=== PATIENT | male | born 1945 | race Caucasian/White ===

== ENCOUNTER → 2019-08-20 | Outpatient (CLI) | payer MEDICARE | END | disposition home or self-care (01) | LOC: RAD 09:58 | DX: I51.7 Cardiomegaly (principal); R05 Cough ==

== ENCOUNTER 2020-02-08 06:56 | Emergency (ER) | payer MEDICARE ==
[~2020-02-08] VITALS: Ht 180.3 cm; Wt 90.7 kg
--- NOTE | 2020-02-08 06:49 | NUR ---
PT WAS ELECTIVE INTUBATED BY DR CHRIS FOR CARDIAC ARREST WITH 7.5 TUBE AND 26@ LIP. HR 72, SPO2 100%. RR 22.
[2020-02-08 08:01] LABS: HEMATOCRIT 35.7 % (42.0-52.0); MEAN CELL VOLUME 101.7 fl (80.0-94.0); MEAN CORPUSCULAR HGB 31.1 pg (27.0-31.0); MEAN CORPUSCULAR HGB CONC 30.5 g/dl (33.0-37.0); MEAN PLATELET VOLUME 11.4 fl (9.6-12.3); PLATELET COUNT AUTOMATED 106 10*3/uL (130-400); RED BLOOD COUNT 3.51 10*6/uL (4.50-5.90); WHITE BLOOD COUNT 8.9 10*3/uL (4.8-10.8)
[2020-02-08 08:10] LABS: ALBUMIN 2.4 gm/dl (3.1-4.5); CREATININE 1.51 mg/dL (0.70-1.30); POTASSIUM 3.3 mmol/L (3.5-5.1); TOTAL PROTEIN 4.9 gm/dL (6.4-8.2)
[2020-02-08 08:12] LABS: ACT PARTIAL THROMBO TIME 37.4 SECONDS (20.0-32.1)
[2020-02-08 08:27] LABS: BURR CELLS MODERATE; PLATELET SUFFICIENCY LOW (NORMAL); TOTAL CELLS COUNTED 100 #CELLS
== END 2020-02-08 09:59 | disposition short-term general hospital (02) ==
LOC: ED 06:56
PROVIDERS: Emergency Medicine
DX: I71.02 Dissection of abdominal aorta (principal); F17.200 Nicotine dependence, unspecified, uncomplicated